=== PATIENT | female | born 1990 | race Caucasian/White ===

== ENCOUNTER 2016-03-05 12:08 | Emergency (ER) | payer OTHER ==
[2016-03-05 12:19] VITALS: BP 141/88
== END 2016-03-05 13:09 | disposition left against medical advice (07) ==
LOC: ED 12:08
DX: S99.922A Unspecified injury of left foot, initial encounter (principal); Z53.21 Procedure and treatment not carried out due to patient leaving prior to being seen by health care provider
CPT/HCPCS: 99281

== ENCOUNTER 2016-03-06 08:19 | Emergency (ER) | payer OTHER ==
[2016-03-06] MEDS ORDERED: Ibuprofen TAB* 600 MG PO ONE (08:40)
--- NOTE | 2016-03-06 09:41 | ED ---
Lower Extremity - HPI Summary HPI Summary: Patient was moving a TV at home two days ago when she accidentally dropped it on her left foot. She had immediate pain but thought it would improve. The next day it was worse, so she came to the ED for evaluation, but it was so crowded she decided to try to wait. Today she has continued pain and is heel walking to get around. She is using ibuprofen with mild relief. She denies prior injury to this foot. No N/T. - History of Current Complaint Chief Complaint: EDExtremityLower Stated Complaint: LT FOOT INJURY Time Seen by Provider: 03/06/16 08:37 Hx Obtained From: Patient Hx Last Menstrual Period: 05/01/12 Mechanism Of Injury: Blunt Trauma Onset of Pain: Immediate Onset/Duration: Days - 2 Severity Initially: Moderate Severity Currently: Severe Pain Intensity: 8 Timing: Constant Location: Is Discrete @ - dorsum of left midfoot Character Of Pain: Sharp, Aching Associated Signs And Symptoms: Positive: Swelling, Bruising - dorsum of left midfoot Aggravating Factor(s): Standing, Movement Alleviating Factor(s): Nothing Able to Bear Weight: Yes - Allergies/Home Medications Allergies/Adverse Reactions: Allergies Allergy/AdvReac Type Severity Reaction Status Date / Time Hydrocodone AdvReac Mild Nausea And Verified 09/09/15 10:05 Vomiting PMH/Surg Hx/FS Hx/Imm Hx Endocrine/Hematology History: Reports: Hx Diabetes - GESTATIONAL Denies: Hx Bone Marrow Disease, Hx Sickle Cell Disease, Hx Anemia Cardiovascular History: Denies: Hx Pacemaker/ICD Respiratory History: Reports: Other Respiratory Problems/Disorders - CHRONIC TOBACCO USE GI History: Reports: Other GI Disorders - GESTATIONAL DIABETES X 3 PREGNANCIES Sensory History: Denies: Hx Contacts or Glasses, Hx Hearing Aid Opthamlomology History: Denies: Hx Contacts or Glasses Neurological History: Reports: Hx Migraine - INFREQUENT Psychiatric History: Reports: Hx Depression - CONTROLLED WITH MEDICATION Denies: Hx Panic Disorder - Surgical History Surgery Procedure, Year, and Place: -2008 [facility] [place]. TUBAL. INGROIN TOENAILS REMOVED Hx Anesthesia Reactions: No Infectious Disease History: No Infectious Disease History: Denies: Traveled Outside the [place] in Last 30 Days - Family History Known Family History: Positive: None - Social History Occupation: Employed Full-time Lives: With Family Alcohol Use: Rare Substance Use Type: Reports: None Smoking Status (MU): Heavy Every Day Tobacco Smoker Type: Cigarettes Cessation Counseling: Patient Advised to Stop Review of Systems Positive: Edema - dorsum of left midfoot Positive: Bruising - dorsum of left midfoot Negative: Weakness, Paresthesia, Numbness All Other Systems Reviewed And Are Negative: Yes Physical Exam Triage Information Reviewed: Yes Vital Signs On Initial Exam: Initial Vitals Temp Pulse Resp BP Pulse Ox 98.1 F 89 15 136/87 98 03/06/16 08:28 03/06/16 08:28 03/06/16 08:28 03/06/16 08:28 03/06/16 08:28 Vital Signs Reviewed: Yes Appearance: Positive: Well-Appearing, Well-Nourished, Pain Distress Skin: Positive: Warm, Skin Color Reflects Adequate Perfusion, Dry, Tender - dorsum of left midfoot, Soft Head/Face: Positive: Normal Head/Face Inspection Eyes: Positive: EOMI, SHAVONNE, Conjunctiva Clear ENT: Positive: Hearing grossly normal Respiratory/Lung Sounds: Positive: Breath Sounds Present Cardiovascular: Positive: RRR Musculoskeletal: Positive: Strength/ROM Intact, Pain @ - dorsum of left midfoot , Edema Left - dorsum of left midfoot Neurological: Positive: Sensory/Motor Intact, Alert, Oriented to Person Place, Time, NV Bundle Intact Distally, Abnormal Gait Psychiatric: Positive: Affect/Mood Appropriate AVPU Assessment: Alert Diagnostics - Vital Signs Vital Signs Temp Pulse Resp BP Pulse Ox 03/06/16 08:28 98.1 F 89 15 136/87 98 - Laboratory Lab Statement: Any lab studies that have been ordered have been reviewed, and results considered in the medical decision making process. - Radiology No standard instances Xray Interpretation: No Acute Changes Radiology Interpretation Completed By: Radiologist Lower Extremity Course/Dx - Diagnoses Differential Diagnosis/HQI/PQRI: Positive: Arthritis, Bursitis, Contusion, Fracture (Closed), Sprain, Strain Provider Diagnoses: Contusion of left foot Discharge - Discharge Plan Condition: Stable Disposition: HOME Patient Education Materials: Foot Contusion (ED) Referrals: Tuan Solomon MD [Primary Care Provider] - Additional Instructions: Please continue to use 600mg of ibuprofen three times daily with meals for the next 3-5 days to decrease swelling and pain. Use the post-op shoe to protect your foot at your pain improves. Follow-up with your primary care provider if your symptoms do not begin to improve in the next 7-10 days. Return to the emergency department if your symptoms worsen.
--- NOTE | 2016-03-06 09:54 | RAD ---
Indication: Foot injury. 3 views of the foot demonstrates no fracture. No other bone or joint abnormality is noted. IMPRESSION: No fracture of the right foot is noted.
[2016-03-06 10:25] VITALS: BP 107/91
== END 2016-03-06 09:50 | disposition home or self-care (01) ==
LOC: ED 08:19
DX: S90.32XA Contusion of left foot, initial encounter (principal); F32.9 Major depressive disorder, single episode, unspecified; W20.8XXA Other cause of strike by thrown, projected or falling object, initial encounter; Y92.009 Unspecified place in unspecified non-institutional (private) residence as the place of occurrence of the external cause; F17.210 Nicotine dependence, cigarettes, uncomplicated; Z88.5 Allergy status to narcotic agent
CPT/HCPCS: 99282; A9270-GY

== ENCOUNTER 2016-07-17 08:19 | Emergency (ER) | payer MEDICAID ==
[2016-07-17 08:26] VITALS: BP 140/84
--- NOTE | 2016-07-17 09:03 | ED ---
Influenza-Like Illness - HPI Summary HPI Summary: Patient presents with generalized muscle and body aches and worries they are from a tick she found a week ago that was attached for approximately 24 hours. She also has intermittent bilateral flank pain without appreciable blood in her urine. She has a "bad back" but doesn't think this is related to her intermittent pain. She denies fever, chills, N/V/D, constipation, increased urgency, frequency or burning. She denies rash. - History of Current Complaint Chief Complaint: EDGeneral Time Seen by Provider: 07/17/16 08:41 Hx Obtained From: Patient Onset/Duration: Gradual Onset Severity: Mild Associated Signs & Symptoms: Myalgia - Allergy/Home Medications Allergies/Adverse Reactions: Allergies Allergy/AdvReac Type Severity Reaction Status Date / Time Hydrocodone AdvReac Mild Nausea And Verified 07/17/16 08:26 Vomiting PMH/Surg Hx/FS Hx/Imm Hx Endocrine/Hematology History: Reports: Hx Diabetes - GESTATIONAL Denies: Hx Bone Marrow Disease, Hx Sickle Cell Disease, Hx Anemia Cardiovascular History: Denies: Hx Pacemaker/ICD Respiratory History: Reports: Other Respiratory Problems/Disorders - CHRONIC TOBACCO USE GI History: Reports: Other GI Disorders - GESTATIONAL DIABETES X 3 PREGNANCIES Sensory History: Denies: Hx Contacts or Glasses, Hx Hearing Aid Opthamlomology History: Denies: Hx Contacts or Glasses Neurological History: Reports: Hx Migraine - INFREQUENT Psychiatric History: Reports: Hx Depression - CONTROLLED WITH MEDICATION Denies: Hx Panic Disorder - Surgical History Surgery Procedure, Year, and Place: -2008 [facility] [place] TUBAL. INGROIN TOENAILS REMOVED Hx Anesthesia Reactions: No Infectious Disease History: No Infectious Disease History: Denies: Traveled Outside the [place] in Last 30 Days - Family History Known Family History: Positive: None - Social History Occupation: Unemployed Lives: With Family Alcohol Use: Rare Substance Use Type: Reports: None Smoking Status (MU): Heavy Every Day Tobacco Smoker Type: Cigarettes Cessation Counseling: Patient Advised to Stop Review of Systems Positive: Fatigue. Negative: Fever, Chills Negative: Sore Throat Negative: Chest Pain Negative: Shortness Of Breath, Cough Positive: Myalgia. Negative: Decreased ROM, Edema Negative: Rash, Bruising Negative: Headache All Other Systems Reviewed And Are Negative: Yes Physical Exam Triage Information Reviewed: Yes Vital Signs On Initial Exam: Initial Vitals Temp Pulse Resp BP Pulse Ox 97.0 F 86 15 140/84 99 07/17/16 08:20 07/17/16 08:20 07/17/16 08:20 07/17/16 08:20 07/17/16 08:20 Vital Signs Reviewed: Yes Appearance: Positive: Well-Appearing, No Pain Distress, Obese Skin: Positive: Warm, Skin Color Reflects Adequate Perfusion, Dry, Soft Head/Face: Positive: Normal Head/Face Inspection Eyes: Positive: EOMI, SHAVONNE, Conjunctiva Clear ENT: Positive: Hearing grossly normal, Pharynx normal Neck: Positive: Supple, Nontender, No Lymphadenopathy Respiratory/Lung Sounds: Positive: Clear to Auscultation, Breath Sounds Present Cardiovascular: Positive: RRR Abdomen Description: Positive: Nontender, Soft. Negative: CVA Tenderness (R), CVA Tenderness (L), Distended, Guarding Bowel Sounds: Positive: Present Musculoskeletal: Positive: Strength/ROM Intact. Negative: Edema Left, Edema Right Neurological: Positive: Sensory/Motor Intact, Alert, Oriented to Person Place, Time, NV Bundle Intact Distally Psychiatric: Positive: Affect/Mood Appropriate AVPU Assessment: Alert Diagnostics - Vital Signs Vital Signs Temp Pulse Resp BP Pulse Ox 07/17/16 08:20 97.0 F 83 16 140/84 99 - Laboratory Result Diagrams: 07/17/16 09:15 07/17/16 09:15 Lab Statement: Any lab studies that have been ordered have been reviewed, and results considered in the medical decision making process. Flu Symptom Course/Dx - Diagnoses Differential Diagnosis/HQI/PQRI: Positive: Bronchitis, Influenza, Pneumonia, Upper Respiratory Infection Provider Diagnoses: Viral illness Discharge - Discharge Plan Condition: Stable Disposition: HOME Patient Education Materials: Viral Syndrome (ED) Referrals: Tuan Solomon MD [Primary Care Provider] - Additional Instructions: Please call your primary care provider for results of your Lyme blood work and follow-up with him as needed. Return to the emergency department if symptoms worsen.
[2016-07-17 09:33] LABS: Hematocrit 42 % (35-47); Hemoglobin 14.1 g/dl (12.0-16.0); Mean Corpuscular HGB Conc 34 g/dl (31-36); Mean Corpuscular Hemoglobin 29 pg (27-31); Mean Corpuscular Volume 87 fL (80-97); Mean Platelet Volume 8 um3 (7.4-10.4); Red Blood Count 4.85 10^6/ul (4.0-5.4); Red Cell Distribution Width 13 % (10.5-15); White Blood Count 8.4 10^3/ul (3.5-10.8)
[2016-07-17 09:43] LABS: Urine Bacteria Absent (Absent); Urine Bilirubin Negative (Negative); Urine Glucose Negative (Negative); Urine Nitrite Negative (Negative)
[2016-07-17 09:47] LABS: Albumin 4.2 g/dL (3.2-5.2); C Reactive Protein 3.04 mg/L (< 5.00); Calcium 9.2 mg/dL (8.6-10.3); EGFR African American 150.2 (>60); EGFR Non-African American 116.8 (>60); Globulin 2.9 g/dL (2-4); Potassium 3.8 mmol/L (3.5-5.0); Total Bilirubin 0.6 mg/dL (0.2-1.0); Total Protein 7.1 g/dL (6.4-8.9)
== END 2016-07-17 10:21 | disposition home or self-care (01) ==
LOC: ED 08:19
DX: B34.9 Viral infection, unspecified (principal); R53.83 Other fatigue; Z86.32 Personal history of gestational diabetes; G43.909 Migraine, unspecified, not intractable, without status migrainosus; F32.9 Major depressive disorder, single episode, unspecified; E66.9 Obesity, unspecified; Z88.5 Allergy status to narcotic agent; F17.210 Nicotine dependence, cigarettes, uncomplicated
CPT/HCPCS: 36415; 80053; 81003; 81015; 85025; 86140; 86618; 87086; 99282

== ENCOUNTER 2017-07-15 16:36 | Emergency (ER) | payer OTHER ==
[2017-07-15] MEDS ORDERED: Tetan/Diph/Pertus SYR(Tdap)* 0.5 ML SYR(BOOSTRIX) use SYR IM ONE (17:48)
[2017-07-15] MEDS ORDERED: Cephalexin CAP* 500 MG PO ONE (18:45)
--- NOTE | 2017-07-15 18:46 | ED ---
Laceration/Wound HPI - HPI Summary HPI Summary: Complains of laceration to right index finger from washing dishes 2 hours prior to arrival. Denies loss of sensation or function distally. Bleeding controlled. No anti-coag. - History of Current Complaint Stated Complaint: RT INDEX FINGER LAC Time Seen by Provider: 07/15/17 17:47 Hx Obtained From: Patient, Family/Schedule Supervisor Hx Last Menstrual Period: 05/01/12 Onset Severity: Moderate Current Severity: Moderate Pain Intensity: 4 Pain Scale Used: 0-10 Numeric Associated Signs & Symptoms: Pain - Allergy/Home Medications Allergies/Adverse Reactions: Allergies Allergy/AdvReac Type Severity Reaction Status Date / Time No Known Allergies Allergy Verified 07/15/17 16:43 PMH/Surg Hx/FS Hx/Imm Hx Endocrine/Hematology History: Reports: Hx Diabetes - GESTATIONAL Denies: Hx Bone Marrow Disease, Hx Sickle Cell Disease, Hx Anemia Cardiovascular History: Denies: Hx Pacemaker/ICD Respiratory History: Reports: Other Respiratory Problems/Disorders - CHRONIC TOBACCO USE GI History: Reports: Other GI Disorders - GESTATIONAL DIABETES X 3 PREGNANCIES Sensory History: Denies: Hx Contacts or Glasses, Hx Hearing Aid Opthamlomology History: Denies: Hx Contacts or Glasses Neurological History: Reports: Hx Migraine - INFREQUENT Psychiatric History: Reports: Hx Depression - CONTROLLED WITH MEDICATION Denies: Hx Panic Disorder - Surgical History Surgery Procedure, Year, and Place: [place]2008 [facility] [place]. INGROIN TOENAILS REMOVED Hx Anesthesia Reactions: No Infectious Disease History: No Infectious Disease History: Denies: Traveled Outside the [place] in Last 30 Days - Family History Known Family History: Positive: None - Social History Alcohol Use: Occasionally Substance Use Type: Reports: Marijuana Smoking Status (MU): Heavy Every Day Tobacco Smoker Type: Cigarettes Review of Systems Constitutional: Negative Eyes: Negative ENT: Negative Cardiovascular: Negative Respiratory: Negative Gastrointestinal: Negative Genitourinary: Negative Musculoskeletal: Negative Positive: Other Neurological: Negative Psychological: Normal All Other Systems Reviewed And Are Negative: Yes Physical Exam - Summary Physical Exam Summary: Laceration at medial base of right index finger. Flexion intact at each individual joint of right index finger. Extension intact. PMS intact. Triage Information Reviewed: Yes Vital Signs On Initial Exam: Initial Vitals Temp Pulse Resp BP Pulse Ox 97.4 F 80 16 125/85 98 07/15/17 16:39 07/15/17 16:39 07/15/17 16:39 07/15/17 16:39 07/15/17 16:39 Vital Signs Reviewed: Yes Appearance: Positive: Well-Appearing Skin: Positive: Warm Head/Face: Positive: Normal Head/Face Inspection Eyes: Positive: Normal Neck: Positive: Supple Respiratory/Lung Sounds: Positive: Clear to Auscultation Cardiovascular: Positive: Normal Abdomen Description: Positive: Nontender Musculoskeletal: Positive: Normal Neurological: Positive: Normal Psychiatric: Positive: Normal AVPU Assessment: Alert - [place] Coma Scale Best Eye Response: 4 - Spontaneous Best Motor Response: 6 - Obeys Commands Best Verbal Response: 5 - Oriented Coma Scale Total: 15 Procedures - Laceration/Wound Repair 1 Location: upper extremity Description: Irregular Anesthesia: Digital, 1.0% Length, Depth and Shape: 4cm x .5cm Betadine Prep?: Yes Irrigated w/ Saline (ccs): 40 Laceration/Wound Explored: clean Debridement: minimal Number of Sutures: 8 - 5.0 ethilon Layer Closure?: No Diagnostics - Vital Signs Vital Signs Temp Pulse Resp BP Pulse Ox 07/15/17 16:39 97.4 F 80 16 125/85 98 - Laboratory Lab Statement: Any lab studies that have been ordered have been reviewed, and results considered in the medical decision making process. Laceration Repair Course/Dx - Course Course Of Treatment: Complains of laceration to right index finger from washing dishes 2 hours prior to arrival. Denies loss of sensation or function distally. Bleeding controlled. No anti-coag.Laceration at medial base of right index finger. Flexion intact at each individual joint of right index finger. Extension intact. PMS intact. 8 sutures. Rx for Keflex. - Clinical Impression Provider Diagnoses: Laceration Discharge - Sign-Out/Discharge Documenting (check all that apply): Discharge/Admit/Transfer - Discharge Plan Condition: Stable Disposition: HOME Prescriptions: Cephalexin CAP* [Keflex CAP*] 500 mg PO TID 5 Days #15 cap Patient Education Materials: Laceration (ED) Forms: *Work Release Referrals: Tuan Solomon MD [Primary Care Provider] - Additional Instructions: Sutures to be removed in 10 days. Wash with warm running water and soap. Do not submerge underwater 2 days. Take antibiotics as directed. Return to the ED for any new or worsening symptoms - Billing Disposition and Condition Condition: STABLE Disposition: Home
[2017-07-15 20:01] VITALS: BP 116/79
== END 2017-07-15 19:56 | disposition home or self-care (01) ==
LOC: ED 16:36
DX: S61.210A Laceration without foreign body of right index finger without damage to nail, initial encounter (principal); W26.9XXA Contact with unspecified sharp object(s), initial encounter; Y93.G1 Activity, food preparation and clean up; Y92.9 Unspecified place or not applicable; F17.210 Nicotine dependence, cigarettes, uncomplicated; Z23 Encounter for immunization
CPT/HCPCS: 12002; 90471; 90715; 99282; A9270-GY

== ENCOUNTER 2017-07-25 08:48 | Emergency (ER) | payer OTHER ==
--- NOTE | 2017-07-25 09:09 | ED ---
Italo Montes Stephanie, scribed for Josue Neumann MD on 07/25/17 at 0902 . ED Suture/Wound Check - HPI Summary HPI Summary: The pt is a 27 y/o F presenting to the ED with desire of suture removal from R index finger today. The pt received stitches on 07/15/17. She denies pain. - History Of Current Complaint Chief Complaint: EDLacSutureRecheck Stated Complaint: SUTURE REMOVAL Time Seen by Provider: 07/25/17 08:55 Hx Obtained From: Patient Onset/Duration: Lasting Days - 10, Still Present Severity: Mild Pain Intensity: 0 Pain Scale Used: 0-10 Numeric - Allergies/Home Medications Allergies/Adverse Reactions: Allergies Allergy/AdvReac Type Severity Reaction Status Date / Time No Known Allergies Allergy Verified 07/25/17 08:49 PMH/Surg Hx/FS Hx/Imm Hx Endocrine/Hematology History: Reports: Hx Diabetes - GESTATIONAL Denies: Hx Bone Marrow Disease, Hx Sickle Cell Disease, Hx Anemia Cardiovascular History: Denies: Hx Pacemaker/ICD Respiratory History: Reports: Other Respiratory Problems/Disorders - CHRONIC TOBACCO USE GI History: Reports: Other GI Disorders - GESTATIONAL DIABETES X 3 PREGNANCIES Sensory History: Denies: Hx Contacts or Glasses, Hx Hearing Aid Opthamlomology History: Denies: Hx Contacts or Glasses Neurological History: Reports: Hx Migraine - INFREQUENT Psychiatric History: Reports: Hx Depression - CONTROLLED WITH MEDICATION Denies: Hx Panic Disorder - Surgical History Surgery Procedure, Year, and Place: -2008 [facility] [place]UBAL. INGROIN TOENAILS REMOVED Hx Anesthesia Reactions: No Infectious Disease History: No Infectious Disease History: Denies: Traveled Outside the [place] in Last 30 Days - Family History Known Family History: Negative: Renal Disease - Social History Occupation: Employed Part-time Lives: With Family Alcohol Use: Occasionally Hx Substance Use: Yes Substance Use Type: Reports: Marijuana Hx Tobacco Use: Yes Smoking Status (MU): Heavy Every Day Tobacco Smoker Type: Cigarettes Have You Smoked in the Last Year: Yes Review of Systems Negative: Fever Musculoskeletal: Negative - R index finger pain Negative: Slurred Speech All Other Systems Reviewed And Are Negative: Yes Physical Exam - Summary Physical Exam Summary: Appearance: Well appearing, no pain distress Skin: warm, dry, reflects adequate perfusion Head/face: normal Eyes: EOMI, SHAVONNE ENT: normal Neck: supple, non-tender Respiratory: CTA, breath sounds present Cardiovascular: RRR, pulses symmetrical Abdomen: non-tender, soft Bowel Sounds: present Musculoskeletal: strength/ROM intact, 8 sutures removed from R index finger. Mild erythema in central portion of wound. No drainage. Neuro: normal, sensory motor intact, A&Ox3 Triage Information Reviewed: Yes Vital Signs On Initial Exam: Initial Vitals Temp Pulse Resp BP Pulse Ox 97.4 F 79 14 121/74 97 07/25/17 08:50 07/25/17 08:50 07/25/17 08:50 07/25/17 08:50 07/25/17 08:50 Vital Signs Reviewed: Yes Procedures - Laceration/Wound Repair 1 Location: Other - R index finger Betadine Prep?: No Laceration/Wound Explored: clean Number of Sutures: 8 - Nylon stitches removed. Diagnostics - Vital Signs Vital Signs Temp Pulse Resp BP Pulse Ox 07/25/17 08:50 97.4 F 79 14 121/74 97 - Laboratory Lab Statement: Any lab studies that have been ordered have been reviewed, and results considered in the medical decision making process. Course/Dx - Course Course Of Treatment: Sutures removed without incident. Wound is healing well. - Clinical Impression Provider Diagnoses: Encounter for wound re-check, Visit for suture removal Discharge - Sign-Out/Discharge Documenting (check all that apply): Discharge/Admit/Transfer - Discharge - Discharge Plan Condition: Stable Disposition: HOME Patient Education Materials: Stitches Removal (ED) Referrals: Tuan Solomon MD [Primary Care Provider] - Additional Instructions: Dress wound with bacitracin ointment twice daily. Return if worse, new symptoms or other concerns. Cut back on smoking. - Billing Disposition and Condition Condition: STABLE Disposition: Home The documentation as recorded by the Italo bhatti Stephanie accurately reflects the service I personally performed and the decisions made by , Josue Neumann MD.
[2017-07-25 09:10] VITALS: BP 00/0
== END 2017-07-25 09:09 | disposition home or self-care (01) ==
LOC: ED 08:48
DX: Z48.02 Encounter for removal of sutures (principal); G43.909 Migraine, unspecified, not intractable, without status migrainosus; F32.9 Major depressive disorder, single episode, unspecified; Z79.899 Other long term (current) drug therapy; F17.210 Nicotine dependence, cigarettes, uncomplicated
CPT/HCPCS: 99281

== ENCOUNTER → 2018-05-08 09:18 | Emergency (ER) | payer OTHER ==
--- NOTE | 2018-05-08 09:56 | ED ---
Influenza-Like Illness - HPI Summary HPI Summary: Pt. is a 27 y.o female who presents to the ER for sinus congestion and productive cough x 4 days. Pt. notes fever and chills. Denies abd. pain, V/D. No significant past medical hx. Notes she is a daily smoker and has had pneumonia in the past. Sxs are mild in severity. No current modifying factors. - History of Current Complaint Chief Complaint: EDUpperRespComplaint Time Seen by Provider: 05/08/18 09:44 Hx Obtained From: Patient - Allergy/Home Medications Allergies/Adverse Reactions: Allergies Allergy/AdvReac Type Severity Reaction Status Date / Time No Known Allergies Allergy Verified 05/08/18 09:24 PMH/Surg Hx/FS Hx/Imm Hx Previously Healthy: Yes Endocrine/Hematology History: Reports: Hx Diabetes - GESTATIONAL Denies: Hx Bone Marrow Disease, Hx Sickle Cell Disease, Hx Anemia Cardiovascular History: Denies: Hx Pacemaker/ICD Respiratory History: Reports: Other Respiratory Problems/Disorders - CHRONIC TOBACCO USE GI History: Reports: Other GI Disorders - GESTATIONAL DIABETES X 3 PREGNANCIES Sensory History: Denies: Hx Contacts or Glasses, Hx Hearing Aid Opthamlomology History: Denies: Hx Contacts or Glasses Neurological History: Reports: Hx Migraine - INFREQUENT Psychiatric History: Reports: Hx Depression - CONTROLLED WITH MEDICATION Denies: Hx Panic Disorder - Surgical History Surgery Procedure, Year, and Place: -2008 [facility] [place]. TUBAL. INGROIN TOENAILS REMOVED Hx Anesthesia Reactions: No Infectious Disease History: No Infectious Disease History: Denies: Traveled Outside the [place] in Last 30 Days - Family History Known Family History: Positive: None, Non-Contributory Negative: Renal Disease - Social History Occupation: Employed Full-time Lives: With Family Alcohol Use: Occasionally Hx Substance Use: Yes Substance Use Type: Reports: Marijuana Substance Use Comment - Amount & Last Used: occ Hx Tobacco Use: Yes Smoking Status (MU): Light Every Day Tobacco Smoker Type: Cigarettes Have You Smoked in the Last Year: Yes Review of Systems Positive: Chills Eyes: Negative Positive: Nasal Discharge Cardiovascular: Negative Negative: Chest Pain Positive: Shortness Of Breath, Cough Gastrointestinal: Negative Negative: Abdominal Pain, Vomiting, Diarrhea Genitourinary: Negative Skin: Negative Neurological: Negative All Other Systems Reviewed And Are Negative: Yes Physical Exam Triage Information Reviewed: Yes Vital Signs On Initial Exam: Initial Vitals Temp Pulse Resp BP Pulse Ox 98.2 F 96 18 119/92 97 05/08/18 09:21 05/08/18 09:21 05/08/18 09:21 05/08/18 09:21 05/08/18 09:21 Vital Signs Reviewed: Yes Appearance: Positive: Well-Appearing - Pt. sitting up in bed in NAD. Skin: Positive: Warm, Dry Head/Face: Positive: Normal Head/Face Inspection Eyes: Positive: Normal, EOMI ENT: Positive: Pharynx normal, TMs normal, Other - Mild tenderness over maxillary sinuses. Neck: Positive: Supple, Nontender, No Lymphadenopathy Respiratory/Lung Sounds: Positive: Other - Diminished breath sounds in bases. No rales, wheezing or rhonchi. Cardiovascular: Positive: Normal, RRR Neurological: Positive: Normal, CN Intact II-III Psychiatric: Positive: Affect/Mood Appropriate Diagnostics - Vital Signs Vital Signs Temp Pulse Resp BP Pulse Ox 05/08/18 09:50 22 05/08/18 09:21 98.2 F 96 18 119/92 97 - Laboratory Lab Statement: Any lab studies that have been ordered have been reviewed, and results considered in the medical decision making process. Flu Symptom Course/Dx - Course Course Of Treatment: Pt. presenting with the above sxs. She is afebrile and well appearing. Negative influenza. CXR negative for acute findings per radiology. Suspect viral etiology. Results discussed. Advised to avoid smoking. Increase fluids and rest. Tylenol or motrin for discomfort as directed. To f.u with PCP and return to ER if sxs change or worsen. Pt. understands and agrees with plan. - Diagnoses Differential Diagnosis/HQI/PQRI: Positive: Influenza, Pneumonia, Upper Respiratory Infection Provider Diagnoses: Bronchitis Discharge - Sign-Out/Discharge Documenting (check all that apply): Patient Departure Patient Received Moderate/Deep Sedation with Procedure: No - Discharge Plan Condition: Good Disposition: HOME Patient Education Materials: Acute Bronchitis (ED) Forms: *Work Release Referrals: Tuan Solomon MD [Primary Care Provider] - Additional Instructions: Schedule follow up with PCP Increase fluids and rest Tylenol or Motrin for discomfort as directed Avoid smoking Return to ER if symptoms change or worsen - Billing Disposition and Condition Condition: GOOD Disposition: Home
[2018-05-08 10:21] LABS: Influenza A Molecular NEGATIVE (Negative); Influenza B Molecular NEGATIVE (Negative)
[2018-05-08 11:23] VITALS: BP 124/95
== END | disposition home or self-care (01) ==
LOC: ED 09:18
DX: J40 Bronchitis, not specified as acute or chronic (principal); Z72.0 Tobacco use; F32.9 Major depressive disorder, single episode, unspecified
CPT/HCPCS: 71046; 99282